=== PATIENT | female | born 1990 | race Caucasian/White ===

== ENCOUNTER 2020-10-14 11:36 | Emergency (ER) | payer OTHER ==
[2020-10-14 12:06] VITALS: TEMP 98; BMI 29.9
[2020-10-14] MEDS ORDERED: ONDANSETRON *ODT* 4 MG TABLET SL ONE (13:11)
[2020-10-14] MEDS ORDERED: MAG HYDROX/AL HYDROX/SIMETH -MYLANTA- ORAL SUSPENSION PO ONE (13:11)
[2020-10-14] MEDS ORDERED: DICYCLOMINE HCL 10 MG/5 ML PO ONE (13:11)
[2020-10-14] MEDS ORDERED: MAG HYDROX/AL HYDROX/SIMETH 30 ML UNIT-DOSE CUP ONE (13:44)
[2020-10-14] MEDS ORDERED: DICYCLOMINE HCL 10 MG CAPSULE ONE (13:44)
[2020-10-14 13:57] LABS: BASO % 0.3 % (0-2.0); EOS % 0.8 % (0-4.5); HEMATOCRIT 37.4 % (32.4-45.2); HEMOGLOBIN 12.8 GM/dL (10.7-15.3); LYMPH % 18.7 % (8-40); MCH 30.5 pg (25.7-33.7); MCHC 34.2 g/dl (32.0-36.0); MEAN CELL VOLUME 89.2 fl (80-96); MEAN PLT VOLUME 10.2 fl (7.5-11.1); MONO % 5.6 % (3.8-10.2); NEUT % 74.6 % (42.8-82.8); PLATELET COUNT 261 K/MM3 (134-434); RBC 4.19 M/mm3 (3.60-5.2); WHITE BLOOD COUNT 9.5 K/mm3 (4.0-10.0)
[2020-10-14 14:17] LABS: POTASSIUM 4.8 mmol/L (3.5-5.1)
[2020-10-14 14:21] LABS: ALBUMIN 3.9 g/dl (3.4-5.0)
[2020-10-14 14:22] LABS: CALCIUM 9.5 mg/dL (8.5-10.1)
[2020-10-14 14:24] LABS: CREATININE 0.7 mg/dL (0.55-1.3)
[2020-10-14 14:25] LABS: BILIRUBIN,TOTAL 0.9 mg/dL (0.2-1); TOT PROT 7.3 g/dl (6.4-8.2)
[2020-10-14 17:23] VITALS: BP 118/76; PULSE 86
== END 2020-10-14 17:23 | disposition home or self-care (01) ==
LOC: JER 11:36
DX: R10.13 Epigastric pain (principal)
CPT/HCPCS: 36415; 74177-TC; 80053; 83690; 84702; 85025; 99285-25; Q0162

== ENCOUNTER 2021-10-30 17:49 | Emergency (ER) | payer OTHER ==
[2021-10-30 17:57] VITALS: BMI 29.9
[2021-10-30 20:05] LABS: BASO % 0.5 % (0-2.0); EOS % 0.7 % (0-4.5); HEMATOCRIT 32.8 % (32.4-45.2); HEMOGLOBIN 11.4 GM/dL (10.7-15.3); LYMPH % 23.1 % (8-40); MCH 31.9 pg (25.7-33.7); MCHC 34.8 g/dl (32.0-36.0); MEAN CELL VOLUME 91.6 fl (80-96); MEAN PLT VOLUME 10.4 fl (7.5-11.1); NEUT % 68.7 % (42.8-82.8); PLATELET COUNT 215 10^3/uL (134-434); RBC 3.58 M/mm3 (3.60-5.2); RDW 13.4 % (11.6-15.6); WHITE BLOOD COUNT 8.7 K/mm3 (4.0-10.0)
[2021-10-30 20:12] LABS: EPI CELLS 16 /uL (0-25.1); HYALINE CASTS 2 /uL (0-3.1); PH,URINE 5.5 (5.0-8.0); URINE APPEARANCE CLEAR; URINE BACTERIA 408 /uL (0-1359); URINE BILIRUBIN NEGATIVE (NEGATIVE); URINE COLOR YELLOW; URINE GLUCOSE (UA) NEGATIVE (NEGATIVE); URINE KETONE TRACE (NEGATIVE); URINE LEUK ESTERASE TRACE (NEGATIVE); URINE NITRITE NEGATIVE (NEGATIVE); URINE PROTEIN NEGATIVE (NEGATIVE); URINE RBC 1 /uL (0-23.9); URINE WBC 29 /uL (0-25.8)
[2021-10-30 20:26] LABS: CALCIUM 8.6 mg/dL (8.5-10.1)
[2021-10-30 20:27] LABS: ALBUMIN 3.1 g/dl (3.4-5.0)
[2021-10-30 20:30] LABS: CREATININE 0.5 mg/dL (0.55-1.3)
[2021-10-30 20:32] LABS: BILIRUBIN,TOTAL 0.2 mg/dL (0.2-1); TOT PROT 6.2 g/dl (6.4-8.2)
[2021-10-30 21:40] VITALS: BP 116/61; PULSE 80; TEMP 98.1
== END 2021-10-31 01:04 | disposition home or self-care (01) ==
LOC: JER 17:49
DX: O26.893 Other specified pregnancy related conditions, third trimester (principal); R55 Syncope and collapse; Z3A.30 30 weeks gestation of pregnancy
CPT/HCPCS: 36415; 76819-TC; 80053; 81003; 82962; 85025; 86850; 86900; 86901; 87086; 93005; 93010; 99285-25